=== PATIENT | female | born 1985 | race Caucasian/White ===

== ENCOUNTER 2023-07-10 08:39 | Emergency (ER) | payer OTHER, SELFPAY ==
--- NOTE | ~2023-07-10 | XR_ITS ---
EXAMINATION: 1. RADIOGRAPHS LEFT ELBOW 2. RADIOGRAPHS LEFT WRIST CLINICAL INFORMATION: Fall on outstretched hand COMPARISON: None TECHNIQUE: 3 views of the left elbow and 4 views of the left wrist were obtained. FINDINGS: Left elbow: No fracture or dislocation. No joint effusion. No focal soft tissue swelling. No radiopaque foreign body. Left wrist: Visualized portions of the distal left radius and ulna demonstrate no fracture. Carpal rows are maintained. No carpal bone fracture. No significant degenerative changes of the wrist. Visualized metacarpals are unremarkable. No localized soft tissue swelling. No radiopaque foreign body. XR/XR wrist LT min 3V IMPRESSION: Unremarkable radiographs of the left elbow and left wrist.
--- NOTE | ~2023-07-10 | XR_ITS ---
EXAMINATION: 1. RADIOGRAPHS LEFT ELBOW 2. RADIOGRAPHS LEFT WRIST CLINICAL INFORMATION: Fall on outstretched hand COMPARISON: None TECHNIQUE: 3 views of the left elbow and 4 views of the left wrist were obtained. FINDINGS: Left elbow: No fracture or dislocation. No joint effusion. No focal soft tissue swelling. No radiopaque foreign body. Left wrist: Visualized portions of the distal left radius and ulna demonstrate no fracture. Carpal rows are maintained. No carpal bone fracture. No significant degenerative changes of the wrist. Visualized metacarpals are unremarkable. No localized soft tissue swelling. No radiopaque foreign body. XR/XR elbow LT min 3V IMPRESSION: Unremarkable radiographs of the left elbow and left wrist.
--- NOTE | 2023-07-10 09:12 | ED_ITS ---
HPI - Extremity Problem General Chief complaint: Extremity Injury, Upper Stated complaint: l arm inj Time Seen by Provider: 07/10/23 09:09 Source: patient and family () Mode of arrival: ambulatory Limitations: no limitations History of Present Illness HPI Narrative: 37 yo female with no significant PMHx presents to the ED today with a complaint of left elbow and left wrist pain s/p FOOSH and elbow hyperextension while rollerskating last night. Reports pain radiation from the medial left elbow into the wrist and tingling in all 5 digits. Pain is exacerbated with movement. Has been taking Motrin at home with minimal relief. Denies head strike or LOC. No on anticoagulation. Denies fever, chills, shoulder pain, back pain, N/V, numbness/weakness of extremities. Related Data Previous Rx's Medication Instructions Recorded ketorolac 10 mg tablet 10 mg PO Q8H 5 days #15 tabs 07/10/23 lidocaine 5 % topical patch 1 patch topical DAILY #15 ea 07/10/23 (Lidoderm) Allergies Allergy/AdvReac Type Severity Reaction Status Date / Time No Known Allergies Allergy Verified 07/10/23 09:23 Review of Systems Review of Systems: Constitutional: No fever, No chills, No fatigue, No malaise ENT/Mouth: No ear pain, No hearing loss, No nasal congestion, No sinus pain, No rhinorrhea, No sore throat Eyes: No eye pain, No swelling, No redness, No vision changes, No foreign body, No discharge Cardio: No chest pain, No palpitations, No dyspnea on exertion, No orthopnea, No edema Respiratory: No SOB, No cough, No sputum, No wheezing, No dyspnea, No hemoptysis GI: No nausea, No vomiting, No hematemesis, No abdominal pain, No diarrhea : No irregular bleeding, No dysuria, No frequency MSK: No back pain, No neck pain, + left elbow pain, + left wrist pain Skin: No skin lesions, No rashes Neuro: No weakness, No numbness, No paresthesias, No LOC, No dizziness, No headache All other systems are reviewed and are negative. [facility] Past Medical History Attestation statement: The following information was validated with the patient. Source: old records reviewed and nursing notes reviewed Social History Social History Advance Directives: No Advance Directives Information Provided: No Physical Exam Vital Signs: Vital Signs: Last Vital Signs Temp 97.6 F 07/10/23 09:33 Pulse 75 07/10/23 09:33 Resp 18 07/10/23 09:33 BP 133/74 07/10/23 09:33 Pulse Ox 97 07/10/23 09:33 O2 Del Method Room Air 07/10/23 09:33 BMI result Body Mass Index 21.8 Vital signs stable. General: Nontoxic appearing. NAD. Holding left arm in adduction. Skin: Warm and dry. No rashes or lesions. Head: Normocephalic, atraumatic. EENT: PERRLA. EOM intact. Neck: Supple without LAD. Normal ROM. Trachea midline. Cardiac: Chest wall symmetric. RRR. S1 and S1 appreciated. No MRG. No JVD. Lungs: CTA bilaterally. No rales, rhonchi, or wheezes. Normal respiratory effort without accessory muscle use. Abdomen: No visible lesions or scars. Soft, NT/ND Spine: No midline spinous tenderness. No deformity or step off. Ext: Upper and lower extremities without erythema, edema, ecchymoses. Full ROM intact, however limited due to pain, with extension and flexion of the left elbow, extension, flexion, ulnar/radial deviation of the left wrist, and adduction/ abduction of all 5 digits on left hand. There's tenderness to palpation over the medial epicondyle of the left humerus without palpable deformity, warmth or fluctuance. + left anatomical snuffbox tenderness. Capillary refill <2 seconds in all extremities. Pulses 2+ equal b/l. Neuro: AOx3. Normal speech. CN 2-12 grossly intact. Strength 5/5 intact throughout. Sensation intact to light touch. NV intact distally. Reflexes 2+ bilaterally. Ambulating with steady gait. Psych: Appropriate mood and affect. Responds appropriately to questions. Course Course Course Narrative: 0632-- Patient declining pain medication at this time. Rates her pain 5/10. Awaiting xray results. 1030-- Xray L elbow/ wrist without acute fracture, dislocation, or soft tissue abnormality > this is likely MSK sprain/ strain. I informed patient of her xray results > will apply sling to left elbow. Although xray does not show scaphoid fracture, will apply velcro splint to L wrist for stabilization of the scaphoid d/t anatomical snuffbox tenderness. Advised patient to follow up with ortho this week for further imaging > referral provided. Patient now requesting pain control > will give IM toradol and send patient rx for toradol and lidoderm patches until ortho f/u. additionally patient may take tylenol at home as needed. Educated on RICE tx. All questions answered. Patient agreeable with plan. Stable for discharge. Medications Administered Discontinued Medications Generic Name Dose Route Start Last Admin Trade Name Lorenzo PRN Reason Stop Dose Admin Ketorolac Tromethamine 30 mg 07/10/23 10:36 07/10/23 10:47 Ketorolac Tromethamine 30 Mg/Ml Vial IM 07/10/23 10:37 30 mg ONCE ONE Administration Medical Decision Making Medical Decision Making MDM Narrative: 37 yo female with no significant PMHx presents to the ED today with a complaint of left elbow and left wrist pain s/p FOOSH while rollerskating last night. Full ROM intact, however limited due to pain, with extension and flexion of the left elbow, extension, flexion, ulnar/radial deviation of the left wrist, and adduction/ abduction of all 5 digits on left hand. There's tenderness to palpation over the medial epicondyle of the left humerus without palpable deformity, warmth or fluctuance. + left anatomical snuffbox tenderness. NV intact distally. Clinical concern for scaphoid fracture vs radial head fracture vs MSK sprain/strain vs dislocation. Low suspicion for avascular necrosis vs neurovascular compromise vs compartment syndrome vs threat to limb. Low suspicion for septic joint, osteomyelitis. Plan to obtain x-rays of the left elbow and left wrist. Differential Diagnosis Differential Diagnoses: The differential diagnosis associated with the presentation includes As above. Admission/Observation Not indicated Independent Interpretation I performed an independent interpretation of an: Plain X-Ray Interpretation: X-ray of left elbow and left wrist without acute fracture or dislocation, agree with radiologist's interpretation. Radiology Impression Discussion of test interpretation with radiology: I have reviewed the radiologist's reading. Radiologist Impression: XR wrist LT min 3V IMPRESSION: Unremarkable radiographs of the left elbow and left wrist. Independent Historian Clinical information obtained from an independent historian. History obtained from or confirmed by: Spouse Prescription Management I considered prescription management with: Pain Medication Procedures Orthopedic Splinting/Casting Injury #1: Side: left Upper Extremity Injury Location: elbow Upper Extremity Immobilizer: sling/shoulder immobilizer Injury #2: Side: left Upper Extremity Injury Location: wrist Upper Extremity Immobilizer: wrist splint Critical Care Time Critical Care Time Critical Care Time: No Discharge Plan Discharge Clinical Impression: Sprain and strain of wrist, Elbow hyperextension injury Patient Disposition: Home, Self-Care Instructions: Wrist Injury (ED), Splint Care (ED), Wrist Sprain (ED) Additional Instructions: The x-ray of your elbow and wrist were negative for fracture today. Pain is a likely contributed to a ligament or tendon injury. Your pain is likely musculoskeletal. Avoid movement of the arm. You have been provided with a sling to help stabilize the elbow vertical and a splint to help stabilize the wrist. Use ice several times per day for 20 minutes at a time for the next 48 hours and then change to heat. Toradol as an anti-inflammatory / pain medication that has been sent to your pharmacy. Take with food. Lidoderm patches are numbing patches. Apply to painful areas. In addition you may take Tylenol at home. You have also been provided a new referral to orthopedic surgeon. Please call them to make an appointment, they will not call you. Follow up with your primary care provider as needed If your pain worsens, if you develop new numbness, tingling, weakness, loss of bowel or bladder function call 911 or return to the ER immediately for evaluation. Prescriptions: New ketorolac 10 mg tablet 10 mg PO Q8H 5 Days Qty: 15 0RF lidocaine [Lidoderm] 5 % adhesive patch,medicated 1 patch topical DAILY Qty: 15 0RF Rx Instructions: leave on most painful area for up to 12 hrs Referrals: [facility] Orthopedic Surgeons [Provider Group] Stand Alone Forms: Work/School Release Interventions: ED Discharge Assessment Last Done: 07/10/23 11:25 Discharge Date/Time: 07/10/23 11:27
--- OUTSIDE RECORDS SUMMARY | 2023-07-10 09:25 | XMS_ITS | Continuity of Care Document ---
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 Name Role Phone Millie Montgomery MD Primary Care Physician [phone] Encounter [facility] Date(s): 11/22/22 - 11/22/[address] [id number] Discharge Disposition: A-D/C Home Attending Physician: Fran Downey MD Admitting Physician: Fran Downey MD Referring Physician: Fran Downey MD Medications No Known Medications Vital Signs Most recent to oldest [Reference Range]: 1 2 3 Height 167.6 cm (11/22/22 7:10 AM) Weight 54.4 kg (11/22/22 7:10 AM) Oxygen Saturation [94-100 %] 99 % (11/22/22 9:30 AM) 99 % (11/22/22 9:10 AM) 98 % (11/22/22 8:56 AM) Pulse Rate [55-90 bpm] 81 bpm (11/22/22 8:56 AM) 78 bpm (11/22/22 8:49 AM) 81 bpm (11/22/22 8:44 AM) Body Mass Index [18.5-24.99 kg/m2] 19.37 kg/m2 (11/22/22 7:10 AM) Blood Pressure [90-138/55-84 mm Hg] 107/67mm Hg (11/22/22 9:30 AM) 112/62mm Hg (11/22/22 9:10 AM) 114/60mm Hg (11/22/22 8:56 AM) Respiratory Rate [16-30 br/min] 14 br/min *L* (11/22/22 8:56 AM) 16 br/min (11/22/22 8:49 AM) 14 br/min *L* (11/22/22 8:44 AM) Temperature [96.8-100.4 DegF] 98 DegF (11/22/22 7:10 AM) Mode of Delivery (Oxygen) Room air (11/22/22 9:10 AM) Room air (11/22/22 8:56 AM) Room air (11/22/22 8:49 AM) Blood pressure sites Arm, left (11/22/22 9:30 AM) Arm, left (11/22/22 9:10 AM) Arm, left (11/22/22 8:56 AM) Temperature Route Temporal (11/22/22 7:10 AM) History and physical note * Event Display: History and Physical Hospital Authored Date: Note * Kenya Canseco RN: PERFORM Event Display: Discharge/Transfer Note Hospital Authored Date: [id number] Nursing Discharge Note Entered On: 11/22/2022 9:06 EST Performed On: 11/22/2022 9:06 EST by Kenya Canseco RN Nursing Discharge Note 2 Discharge Time : 11/22/2022 9:40 EST Kenya Canseco RN - 11/22/2022 9:44 EST Discharge Level of Care at Discharge : Home/Custodial/Foster Care Patient Left Unit Via : Wheelchair Patient Accompanied Off Unit with : Responsible adult DC Instructions Provided & Signed by Pt : Yes Patient Understands D/C Instructions : Yes Patient Instructions Discharge Signed : Yes Did Pt have Specialty Bed or Wound Vac : No Kenya Canseco RN - 11/22/2022 9:06 EST * Kenya Canseco RN: PERFORM Event Display: Patient Education/Instruction Authored Date: [id number] Inpatient Adult Discharge Instructions [address] [id number] Name: ELAINE LINDA : 1985 Visit: 11/22/2022 06:57:00 Current Date: 11/22/2022 09:06 Account: [id number] Inpatient Adult Discharge Instructions We would like to thank you for allowing us to assist you with your healthcare needs. The following includes patient education materials and information regarding your injury/illness. Our entire staffstrives to provide an excellent experience for our patients and their families. PLEASE ENSURE YOU FOLLOW-UP PER THE INSTRUCTIONS BELOW! ?? YOUR OPINION IS IMPORTANT TO US! Please complete the survey you may receive by mail or email. Your feedback will be used to make improvements to the healthcare experiences of our patients and their families. Surveys are administered by [email or web address] ?? If further treatment with your primary care physician or another doctor is recommended, it is important for you to keep the appointment. Call your primary care physician or return to the Emergency Department immediately if your condition worsens, fails to improve, or new symptoms develop. If you need to find a doctor, you can call [facility] for a referral at [phone] or toll free at [phone] ([phone]) or log in to [email or web address].. ?? You can view and manage your care through the patient portal or by using a health care matt of your choosing. [employer] is a website that allows you to securely view your medical information including your hospital discharge summary, office visit summaries, medications and follow-up visits. You can also request appointments, renew medications, and request access to your medical information using a health care matt of your choosing, or just ask a question. You can enroll at [email or web address] or register during your next office visit. You have been discharged from [facility], Patient Care Unit: ENDO. If you have any questions regarding these instructions after you leave, please call us and we will be happy to assist you. [facility] Your Care Team Attending Physician Fran Downey MD Discharging Providers Fran Downey MD Reason for Admission BLEPHAROCHALASIS Tests Performed Below is a partial list of the tests performed during your hospitalization. You may have had other tests and procedures not included in this list. Please discuss all test results with your provider. Primary Care Provider Millie Montgomery MD Advance Directive Health Care Proxy on File No Patient refuses to discuss Discharge Vitals Temperature: 98 DegF Height: 167.6 cm Pulse Rate: 81 bpm Weight: 54.4 kg Respiratory Rate:??14 br/min??Low Body Mass Index: 19.37 kg/m2 Systolic Blood Pressure: 114 mm Hg Body surface area: 1.59 Diastolic Blood Pressure: 60 mm Hg ?? Oxygen Saturation: 98 % ?? Studies Pending All tests and labs ordered during this hospital stay have been completed unless listed below. Please discuss all pending results with your provider listed above in these instructions. ?? No incomplete studies found What to do next Instructions From Your Doctor Discharge Orders You Need to Schedule the Following Appointments Follow Up with??As Needed When?? Discharge Medications ELAINE LINDA :1985 Visit Date:11/22/2022 Medications: Please continue your medications until treatment is completed or stopped by your provider. Medications not listed below should be discontinued. Discuss any questions related to medications with your provider. Test Results Below is a partial list of the most recent Laboratory test results done prior to this discharge. You may have had other tests and procedures not included in this list. Please discuss all test resultswith your provider. Allergies (NKA means No Known Allergies) No active allergies Problems No qualifying data available Education Materials Below is the list of Educational Leaflet Providered with your Discharge Instructions. Surgery Medical Daystay Surgical Overnight Discharge Instructions?? Valuables and Belongings I fully understand and agree that [facility] accepts no responsibility for all my personal property including clothing, toilet articles, radios, jewelry, dentures, hearing aids, rings, money, or any other property that is in my possession or is brought to me after admission. I understand certain valuables may be placed in a hospital safe for a short period of time. I understand that the hospital is not liable for loss or damage due to accident, fire, or other natural occurrence while said property is in the safe. I accept full responsibility for any personal property that I keep with me, and will not hold the hospital responsible in case of loss or disappearance. I acknowledge that i have been encouraged to send valuables and belongings home. ? Other Discharge Information ? Case Management Discharge Plan?? Discharge Plan?? Discharge Level of Care at Discharge: Home/Custodial/Foster Care ?? Pulmonary Rehab Status?? Pulmonary Rehab Discharge Status?? Respiratory Rate:??14 br/min??Low ? Common Emergency Awareness Tips IS IT A STROKE? Act FAST and Check for these signs: FACE Does the face look uneven? ARM Does one arm drift down? SPEECH Does their speech sound strange? TIME Call at any sign of stroke ?? Heart Attack Signs Chest discomfort: Most heart attacks involve discomfort in the center of the chest and lasts more than a few minutes, or goes away and comes back. It can feel like uncomfortable pressure, squeezing, fullness or pain. Discomfort in upper body: Symptoms can include pain or discomfort in one or both arms, back, neck, jaw or stomach. Shortness of breath: With or without discomfort. Other signs: Breaking out in a cold sweat, nausea, or lightheaded. Remember, MINUTES DO MATTER. If you experience any of these heart attack warning signs, call to get immediate medical attention! ?? Smoking can increase your chances of developing chronic health problems and can cause harmful effects to other family members in your house. If you smoke, you are strongly encouraged to quit. Please call [facility] [employer] Link at [phone] or 3-579-664Fitfully ([phone]) or log in to [email or web address] for referrals to smoking cessation programs. ?? The National Suicide Prevention Hotline is available 13/05 if you or someone you know needs to find a reason to keep living. By calling 7-022-112-SPARQCode (6230) you'll be connected to a skilled, trained counselor at a crisis center in your area. INPATIENT DISCHARGE INSTRUCTIONS SIGNATURE PAGE ELAINE LINDA Location:[facility] Registration Date and Time:11/22/2022 06:57 EST Primary Care Physician: Ulises SENIOR , Millie Hobson, I ELAINE LINDA, have received the above patient education materials/instructions and have verbalized understanding. If ambulance or transport services are being used I further acknowledge being given a choice of service. ?? If you need to contact me, please call me at this number: . 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 295 Medical Daystay/Surgical Overnight Discharge Instructions ? Since your coordination and judgment may be altered by medication and/or anesthesia, a responsible adult must drive you home from the hospital. ? If you have received medication for pain or sedation while under our care, you should not drive, operate machinery, drink alcohol, or sign any legal documents for 24 hours.?? You should have someone with you at home tonight. ? Remain at home the day of discharge.?? You may be up and about unless otherwise instructed by your physician. ? You may resume your daily prescription medication schedule.?? Any depressant medication should be avoided for 24 hours unless otherwise instructed by your surgeon or anesthesiologist. ? Call your physician for a follow-up appointment.? If you experience unusual or severe pain not relied by your pain medication, excessive bleedingor drainage, persistent nausea and vomiting, excessive swelling or redness, foul odor from incisionsite or fever over 100.6F, you need to call your physician. ? A follow-up phone call by a nurse will be made the day after your procedure.?? If you have stayed with us over night, you will not be receiving a follow-up phone call. ? Nausea and vomiting are a common side effect of prescription pain medication.?? We recommend that pills are not taken on an empty stomach.?? While taking any prescription pain medication you should not drive or drink alcohol. ? Patient Care team information Care Team Personnel Name: Millie Montgomery MD Position: [facility] Physician (General Medicine) Member Role: PCP Address: Address: [address] [address]- Care Team Related Persons Name: GARO LINDA Address: home [address] [place] [address]
[2023-07-10 09:33] VITALS: BP 133/74; PULSE 75; RESP 18; TEMP 36.4; O2SAT 97; BMI 21.8
[2023-07-10] MEDS: Ketorolac Tromethamine 30 MG/ML VIAL IM (10:47)
== END 2023-07-10 11:27 | disposition home or self-care (01) ==
PROVIDERS: Emergency Provider Emergency Medicine; PCP Internal Medicine
DX: S63.502A Unspecified sprain of left wrist, initial encounter (principal); S53.402A Unspecified sprain of left elbow, initial encounter; X58.XXXA Exposure to other specified factors, initial encounter; Y93.9 Activity, unspecified; Y92.9 Unspecified place or not applicable; Y99.9 Unspecified external cause status
CPT/HCPCS: 29105; 73080; 73110; 96372; 99284; J1885

== ENCOUNTER 2023-08-22 09:00 | Outpatient (AMB) | payer OTHER, SELFPAY ==
[2023-08-22 09:19] VITALS: BMI 21.8
--- NOTE | 2023-08-22 09:19 | MHC.OFFVIS ---
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 Patient reports FOOSH and elbow while rollerskating, presented to [facility] the following day where xrays were taken. Currently pain with ROM and extension. States elbow is tender to the touch as well as pain that radiates down her forearm. Occasional tingling in her elbow. Allergies No Known Allergies Allergy (Verified 08/22/23 09:26) Medication List - Last Reconciled 08/22/23 by Debbie Mayes MD No Known Home Meds HPI HPI Comments History of Present Illness Details Fall on left outstretched hand while rollerskating, 07/10/23. Still with medial elbow pain, goes to forearm. Hurts with any motion, even with rest. No swelling or redness or warm. Tender to touch. Not yet tried an elbow brace. No numbness but occasional tingling on elbow, sometimes on fingers. 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 MSK: Inspection reveals appropriate head and neck positioning. Spurling's sign negative. Bilateral shoulder ROM WNL. No ligamentous laxity or crepitance. No increased effusion. Hawkin's test is negative. Tender on left lateral epicondyle and mildly on olecranon. No joint effusion noted. No deformity noted. No redness or warmth. Increased lateral elbow pain with resisted wrist extension. No pain on medial elbow with resisted wrist flexion. No intrinsic hand weakness noted. No atrophy noted. Aura test negative. Carpal compression test negative. Tinel sign negative. No tenderness on wrist or digits. Strength is 5/5 in all muscle groups tested. No increased tone noted. Neurological: Neurologic examination of the upper and lower extremities was nonfocal with intact sensation, muscle stretch reflexes and without focal motor deficits . Aranda?s negative bilaterally. Gait is non-antalgic without loss of balance. Results Reviewed Results Reviewed: I independently reviewed the results of the following: Left elbow and wrist x-ray unremarkable 07/10/2023 I reviewed records from the following: ER Assessment & Plan Assessment & Plan (1) Lateral epicondylitis of left elbow: Code(s): M77.12 - Lateral epicondylitis, left elbow Plan Fall on outstretched hand, left, 07/10/2023. No signs of fracture on imaging or exam. Signs of left lateral epicondylitis or common extensor tendinopathy. Will provide counterforce brace to wear during the day. Would benefit on more consistent dosing of NSAIDs. Ibuprofen 800 mg t.i.d. for the next 7 days. Take with full stomach. Side effects and precautions discussed. Referring to OT. Ice would help. If not better in about 2 months, may consider injection. Assessment and plan discussed with patient, and patient was agreeable. All questions were answered thoroughly. Follow-up 2-3 months. Debbie Mayes MD, IRMA Board Certified, [place] [employer] and [employer] (ABPMR) Board Certified, [place] [employer] (ABEM) Orders: Orders OT Evaluation and Treatment Today M77.12 - Lateral epicondylitis, left elbow Medications: New ibuprofen 800mg every 8 hours for 7 days, with full stomach 800 mg PO Q8H 21 tabs 1RF Coding Level of Care Code New Pt Level 4 (00403) Diagnoses Lateral epicondylitis of left elbow M77.12
== END 2023-08-22 09:52 | disposition home or self-care (01) ==
PROVIDERS: PCP Internal Medicine; Visit Provider Physical Medicine & Rehabilitation
DX: M77.12 Lateral epicondylitis, left elbow (principal)
CPT/HCPCS: 99204

== ENCOUNTER → 2023-08-22 09:00 | Outpatient (BNVA) | payer OTHER, SELFPAY | PROVIDERS: PCP Internal Medicine; Visit Provider Physical Medicine & Rehabilitation ==